=== PATIENT | male | born 1980 | race Caucasian/White ===

== ENCOUNTER 2017-05-08 03:09 | Emergency (ER) | payer OTHER ==
[~2017-05-08] VITALS: Ht 167.6 cm; Wt 109.1 kg
[2017-05-08 03:10] VITALS: BP 149/105
[2017-05-08] MEDS ORDERED: CLIN150C14 PO (03:15)
[2017-05-08] MEDS ORDERED: NAPR550T22 PO (03:15)
== END 2017-05-08 03:47 | disposition home or self-care (01) ==
LOC: M ED 03:09
DX: K08.89 Other specified disorders of teeth and supporting structures (principal); F17.210 Nicotine dependence, cigarettes, uncomplicated; Z79.2 Long term (current) use of antibiotics; Z79.899 Other long term (current) drug therapy

== ENCOUNTER → 2020-03-16 | Outpatient (CLI) | payer OTHER ==
[~2020-03-16] MED LIST: CLIN150C14 PO; D31000TA2 PO; FISH1000 PO; IBUP200C25 PO; NAPR-832 PO; ROSU10TA6 PO
== END ==
LOC: M LABSMTC 10:53
PROVIDERS: ATTEND Anesthesiology
DX: Z01.812 Encounter for preprocedural laboratory examination (principal); Z20.828 Contact with and (suspected) exposure to other viral communicable diseases

== ENCOUNTER 2020-03-21 08:57 | Day surgery (SDC) | payer OTHER ==
[~2020-03-21] VITALS: Ht 167.6 cm; Wt 111.5 kg
[~2020-03-21 08:57] MED LIST changes: +NS 1,000 ML IV ONE
[2020-03-21] MEDS ORDERED: fentaNYL 100 MCG/2 ML INJECTION (J3010) As Ordered ONE (09:54)
[2020-03-21] MEDS ORDERED: LIDOCAINE 2% 100MG/5ML SDV (FOR ANES.) As Ordered ONE (09:54)
[2020-03-21] MEDS ORDERED: propofoL 200 MG/20 ML VIAL As Ordered ONE (09:54)
--- NOTE | 2020-03-21 11:36 | ROOR ---
Patient Name: Lonnie Marin Procedure Date: 03/21/2020 11:10 AM Date of : 1980 Age: 39 Room: [facility] Gender: Male Note Status: Finalized Procedure: Upper Endoscopy + Biopsies Indications: Heartburn, Exclusion of Fuller's esophagus Providers: Imer Driscoll MD Referring MD: [facility], Admin. Requesting Provider: Medicines: Monitored Anesthesia Care Complications: No immediate complications. Procedure: Pre-Anesthesia Assessment: - The heart rate, respiratory rate, oxygen saturations, blood pressure, adequacy of pulmonary ventilation, and response to care were monitored throughout the procedure. The Endoscope was introduced through the mouth, and advanced to the second part of duodenum. The upper GI endoscopy was accomplished without difficulty. The patient tolerated the procedure well. Findings: The Z-line was irregular and was found 35 cm from the incisors. Multiple biopsies were obtained with cold forceps for evaluation to rule out Fuller's Esophagus randomly at the gastroesophageal junction. A small hiatal hernia was present. No other significant abnormalities were identified in a careful examination of the stomach. The exam of the duodenum was otherwise normal. Impression: - Z-line irregular, 35 cm from the incisors. - Small hiatal hernia. - Multiple biopsies were obtained at the gastroesophageal junction. - The examination was otherwise normal. Recommendation: - Patient has a contact number available for emergencies. The signs and symptoms of potential delayed complications were discussed with the patient. Return to normal activities tomorrow. Written discharge instructions were provided to the patient. - High fiber diet. - Discharge patient to home. - Follow an antireflux regimen. - Continue present medications. - Await pathology results. - Telephone GI clinic for pathology results in 1 week. - Return to referring physician. - The findings and recommendations were discussed with the patient. Imer Driscoll MD Imer Driscoll MD 03/21/2020 11:35:23 AM Electronically signed by Imer Driscoll MD Number of Addenda: 0 Note Initiated On: 03/21/2020 11:10 AM Estimated Blood Loss: Estimated blood loss: none.
--- NOTE | 2020-03-21 11:59 | ROOR ---
Patient Name: Lonnie Marin Procedure Date: 03/21/2020 11:12 AM Date of : 1980 Age: 39 Room: [facility] Gender: Male Note Status: Finalized Procedure: Total Colonoscopy to Cecum + Cold Snare Polypectomy + Hemoclips Indications: Change in bowel habits Providers: Imer Driscoll MD Referring MD: [facility], Admin. Requesting Provider: Medicines: Monitored Anesthesia Care Complications: No immediate complications. Procedure: Pre-Anesthesia Assessment: - The heart rate, respiratory rate, oxygen saturations, blood pressure, adequacy of pulmonary ventilation, and response to care were monitored throughout the procedure. The Colonoscope was introduced through the anus and advanced to the cecum, identified by appendiceal orifice and ileocecal valve. The colonoscopy was performed without difficulty. The patient tolerated the procedure well. The quality of the bowel preparation was excellent. Findings: The perianal and digital rectal examinations were normal. Non-bleeding internal hemorrhoids were found during retroflexion. The hemorrhoids were small and Grade I (internal hemorrhoids that do not prolapse). A medium polyp was found in the distal transverse colon. The polyp was sessile. The polyp was removed with a cold snare. Resection and retrieval were complete. To prevent bleeding after the polypectomy, one hemostatic clip was successfully placed (MR conditional). There was no bleeding at the end of the procedure. The exam was otherwise without abnormality on direct and retroflexion views. Impression: - Non-bleeding internal hemorrhoids. - One medium polyp in the distal transverse colon, removed with a cold snare. Resected and retrieved. Clip (MR conditional) was placed. - The examination was otherwise normal on direct and retroflexion views. - The exam was otherwise normal to the cecum. Recommendation: - Patient has a contact number available for emergencies. The signs and symptoms of potential delayed complications were discussed with the patient. Return to normal activities tomorrow. Written discharge instructions were provided to the patient. - High fiber diet. - Discharge patient to home. - Continue present medications. - Repeat colonoscopy in 10 years for screening purposes. - Return to referring physician. - Await pathology results. - Telephone GI clinic for pathology results. - The findings and recommendations were discussed with the patient. Imer Driscoll MD Imer Driscoll MD 03/21/2020 11:58:41 AM Electronically signed by Imer Driscoll MD Number of Addenda: 0 Note Initiated On: 03/21/2020 11:12 AM Estimated Blood Loss: Estimated blood loss: none.
[2020-03-21 12:10] VITALS: BP 138/84
== END 2020-03-21 12:39 | disposition home or self-care (01) ==
LOC: M OPP 08:57
PROVIDERS: ATTEND Internal Medicine Gastroenterology
DX: R19.4 Change in bowel habit (principal); R12 Heartburn; K63.5 Polyp of colon; K64.0 First degree hemorrhoids; K22.8 Other specified diseases of esophagus; K44.9 Diaphragmatic hernia without obstruction or gangrene; D13.0 Benign neoplasm of esophagus; E78.5 Hyperlipidemia, unspecified; F17.290 Nicotine dependence, other tobacco product, uncomplicated; Z79.899 Other long term (current) drug therapy
CPT/HCPCS: 43239; 45385; 88305; J3010

== ENCOUNTER 2021-01-17 04:23 | Emergency (ER) | payer OTHER ==
[~2021-01-17] VITALS: Ht 170.2 cm; Wt 110.9 kg
[~2021-01-17 04:23] MED LIST changes: -CLIN150C14 PO; +CLIN150C15 PO; -NS 1,000 ML IV ONE
[2021-01-17 04:25] VITALS: BP 140/90
== END 2021-01-17 05:31 | disposition left against medical advice (07) ==
LOC: M ED 04:23
DX: Z53.21 Procedure and treatment not carried out due to patient leaving prior to being seen by health care provider (principal)

== ENCOUNTER → 2021-03-25 | Outpatient (CLI) | payer OTHER ==
[~2021-03-25] MED LIST changes: -CLIN150C15 PO; +CLIN150C17 PO
--- NOTE | 2021-03-25 14:33 | REP ---
INDICATION: SOB COMPARISON: None. TECHNIQUE: PA and lateral. FINDINGS: The mediastinum and cardiac silhouette are normal. The lung martinez are clear and without acute consolidation, effusion, or pneumothorax. The skeletal structures are intact and normal. IMPRESSION: No acute cardiopulmonary process. If the patient remains symptomatic consider chest CT for further investigation. <Electronically signed by Kevin Smith > 03/25/21 [id number]
== END ==
LOC: M WUC 14:15
PROVIDERS: ATTEND Physician Assistant
DX: R06.02 Shortness of breath (principal); F17.210 Nicotine dependence, cigarettes, uncomplicated

== ENCOUNTER 2022-06-05 00:47 | Emergency (ER) | payer OTHER ==
[~2022-06-05] VITALS: Ht 167.6 cm; Wt 113.6 kg
[~2022-06-05 00:47] MED LIST changes: -D31000TA2 PO; +VITA100093 PO
[2022-06-05 01:35] LABS: BASO # 0.1 10^3/uL (0.0-0.2); BASO % 0.6 % (0.0-1.0); EOS # 0.2 10^3/uL (0.0-0.5); EOS % 2.1 % (0.0-3.0); HEMATOCRIT 47.5 % (42.0-52.0); HEMOGLOBIN 16.4 g/dl (13.5-17.5); LYMPH # 3.2 10^3/uL (1.5-5.0); LYMPH % 30.6 % (24.0-44.0); MEAN CORPUSCULAR HGB CONC 34.5 g/dl (32.0-36.5); MEAN CORPUSCULAR VOLUME 89.8 fl (80.0-96.0); MONO # 0.9 10^3/uL (0.0-0.8); MONO % 8.2 % (2.0-8.0); NEUTROPHILS % 58.1 % (36.0-66.0); PLATELET COUNT, AUTOMATED 214 10^3/uL (150-450); RED BLOOD COUNT 5.29 10^6/uL (4.30-6.10); WHITE BLOOD COUNT 10.3 10^3/uL (4.0-10.0)
[2022-06-05 01:45] LABS: INR 0.87
[2022-06-05] MEDS: ASPIRIN 81MG CHEW TABLET PO ONE ×2 (01:45→01:53)
[2022-06-05 01:55] LABS: CK-MB VALUE MASS 1.3 NG/ML (<3.6)
[2022-06-05 01:56] LABS: LIPASE 83 U/L (12-53)
[2022-06-05 01:57] LABS: BILIRUBIN,DIRECT < 0.1 MG/DL (<0.4)
[2022-06-05 01:59] LABS: THYROID STIMULATING HORMONE 2.785 uIU/ML (0.55-4.78)
[2022-06-05] MEDS ORDERED: KETOROLAC 30 MG/ML 1ML VIAL IV ONE (02:00)
[2022-06-05 02:01] LABS: ALBUMIN 3.5 G/DL (3.2-5.2); ALKALINE PHOSPHATASE 68 U/L (46-116); ALT/SGPT 55 U/L (7.0-40); AST/SGOT 28 U/L (<34); BILIRUBIN,TOTAL 0.2 MG/DL (0.3-1.2); BLOOD UREA NITROGEN 14 MG/DL (9-23); CALCIUM LEVEL 8.8 MG/DL (8.5-10.1); CARBON DIOXIDE LEVEL 26 MMOL/L (20-31); CHLORIDE LEVEL 108 MMOL/L (98-107); CPK CREATINE PHOSPHOKINASE 274 U/L (46-171); CREATININE FOR GFR 0.95 MG/DL (0.70-1.30); GLOMERULAR FILTRATION RATE > 60.0 (>60); GLUCOSE, FASTING 119 MG/DL (60-100); MB/CK RELATIVE INDEX 0.47 (< OR =4); POTASSIUM SERUM 4.2 MMOL/L (3.5-5.1); SODIUM LEVEL 140 MMOL/L (136-145); TOTAL PROTEIN 6.5 G/DL (5.7-8.2)
[2022-06-05] MEDS ORDERED: hydrALAZINE 20MG/ML 1ML VIAL IV ONE (02:35)
[2022-06-05] MEDS ORDERED: ISOVUE-370 76% 100ML VIAL As Ordered ONE (02:43)
[2022-06-05 03:02] LABS: CK-MB VALUE MASS < 1.0 NG/ML (<3.6)
[2022-06-05 03:08] LABS: CPK CREATINE PHOSPHOKINASE 264 U/L (46-171); MB/CK RELATIVE INDEX 0.37 (< OR =4)
[2022-06-05] MEDS ORDERED: NS 1,000 ML IV ONE (03:10)
[2022-06-05 03:26] VITALS: BP 180/94
[2022-06-05] MEDS ORDERED: MORPHINE 2 MG/ML 1ML VIAL IV ONE (04:35)
[2022-06-05] MEDS ORDERED: KETO10TAB PO (05:45)
[2022-06-05 05:49] VITALS: BP 132/80
[2022-06-05] MEDS ORDERED: KETOROLAC TROMETHAMINE 10 MG TAB PO ONE (05:50)
== END 2022-06-05 06:03 | disposition home or self-care (01) ==
LOC: M ED 00:47
DX: R07.89 Other chest pain (principal); E78.5 Hyperlipidemia, unspecified; F17.200 Nicotine dependence, unspecified, uncomplicated; F12.10 Cannabis abuse, uncomplicated; Z79.899 Other long term (current) drug therapy
CPT/HCPCS: 71045; 71275; 80048; 80076; 81002; 82550; 82553; 83690; 83880; 84439; 84443; 84484; 85025; 85610; 87486; 87581; 87633; 87798; 93005; 93041; 94760; 99285; J0360; J1885; Q9967

== ENCOUNTER → 2022-08-15 | Outpatient (CLI) | payer OTHER ==
[~2022-08-15] MED LIST changes: +KETO10TAB PO
== END ==
LOC: M PLAIMG 08:18
PROVIDERS: ATTEND Internal Medicine
DX: M54.50 Low back pain, unspecified (principal)

== ENCOUNTER 2023-09-30 11:54 | Day surgery (SDC) | payer OTHER ==
[~2023-09-30] VITALS: Ht 167.6 cm; Wt 118.3 kg
[2023-09-30 12:33] LABS: BASO # 0.1 10^3/uL (0.0-0.2); BASO % 0.4 % (0.0-1.0); EOS # 0.1 10^3/uL (0.0-0.5); EOS % 0.7 % (0.0-3.0); HEMATOCRIT 47.7 % (42.0-52.0); HEMOGLOBIN 16.7 g/dl (13.5-17.5); LYMPH # 2.3 10^3/uL (1.5-5.0); MEAN CORPUSCULAR HEMOGLOBIN 31.7 pg (27.0-33.0); MEAN CORPUSCULAR VOLUME 90.7 fl (80.0-96.0); MONO # 0.9 10^3/uL (0.0-0.8); MONO % 7.3 % (2.0-8.0); NEUTROPHILS # 8.8 10^3/uL (1.5-8.5); NEUTROPHILS % 72.3 % (36.0-66.0); PLATELET COUNT, AUTOMATED 218 10^3/uL (150-450); RED BLOOD COUNT 5.26 10^6/uL (4.30-6.10); WHITE BLOOD COUNT 12.1 10^3/uL (4.0-10.0)
[2023-09-30 13:05] LABS: LIPASE 52 U/L (12-53)
[2023-09-30 13:08] LABS: ALBUMIN 3.7 G/DL (3.2-5.2); ALKALINE PHOSPHATASE 60 U/L (46-116); ALT/SGPT 48 U/L (7.0-40); AST/SGOT 22 U/L (<34); BILIRUBIN,DIRECT 0.2 MG/DL (<0.4); BILIRUBIN,TOTAL 0.5 MG/DL (0.3-1.2); BLOOD UREA NITROGEN 16 MG/DL (9-23); CALCIUM LEVEL 8.6 MG/DL (8.5-10.1); CARBON DIOXIDE LEVEL 30 MMOL/L (20-31); CHLORIDE LEVEL 103 MMOL/L (98-107); CREATININE FOR GFR 1.05 MG/DL (0.70-1.30); GLOMERULAR FILTRATION RATE > 60.0 (>60); GLUCOSE, FASTING 123 MG/DL (60-100); POTASSIUM SERUM 4.1 MMOL/L (3.5-5.1); SODIUM LEVEL 138 MMOL/L (136-145); TOTAL PROTEIN 6.6 G/DL (5.7-8.2)
[2023-09-30] MEDS: NS 1,000 ML IV ONE (13:45)
[2023-09-30] MEDS ORDERED: ISOVUE-370 76% 100ML VIAL As Ordered ONE (13:48)
[2023-09-30] MEDS: PIPERACILLIN/TAZOBACTAM SOD 4.5 GM in D5W MINI-BAG PLUS 50 ML IV ONE (14:23)
[2023-09-30] MEDS: ACETAMINOPHEN *IV* 1,000 MG in IV 1 EA IV ONE (14:24)
[2023-09-30] MEDS ORDERED: MILKSUS3 PO (14:42)
[2023-09-30] MEDS ORDERED: HOME MED LIST COMPLETE! XX SCH (14:45)
[2023-09-30] MEDS ORDERED: MORPHINE 2 MG/ML 1ML VIAL IV PRN (16:30)
[2023-09-30] MEDS ORDERED: ONDANSETRON 4MG 2ML VIAL IV PRN (16:30)
[2023-09-30] MEDS: LR 1,000 ML IV SCH (17:15)
[2023-09-30] MEDS: PIPERACILLIN/TAZOBACTAM SOD 3.375 GM in D5W MINI-BAG PLUS 50 ML IV SCH (20:12)
[2023-09-30] MEDS ORDERED: ROCURONIUM BROMIDE 50MG/5ML VIAL As Ordered ONE (22:05)
[2023-09-30] MEDS ORDERED: LIDOCAINE 2% 100MG/5ML SDV (FOR ANES.) As Ordered ONE (22:05)
[2023-09-30] MEDS ORDERED: propofoL 200 MG/20 ML VIAL As Ordered ONE (22:05)
[2023-09-30] MEDS ORDERED: MIDAZOLAM INJ 2MG/2ML VIAL As Ordered ONE (22:06)
[2023-09-30] MEDS ORDERED: fentaNYL 250 MCG/5 ML INJECTION As Ordered ONE (22:06)
[2023-09-30] MEDS ORDERED: LIDOCAINE 1% SDV 30ML VIAL As Ordered ONE (22:15)
[2023-09-30] MEDS ORDERED: ONDANSETRON 4MG 2ML VIAL As Ordered ONE (22:51)
[2023-09-30] MEDS ORDERED: ACETAMINOPHEN 1000MG 100ML IV BAG As Ordered ONE (22:52)
[2023-09-30] MEDS ORDERED: ALBUTEROL 6.7GM INHALER **FOR ANES. CART/OMNICELL ONLY As Ordered ONE (22:53)
[2023-09-30] MEDS ORDERED: SUGAMMADEX SODIUM 500 MG/5 ML VIAL (BRIDION) As Ordered ONE (23:11)
[2023-09-30] MEDS ORDERED: PERCOCET 5MG/325MG TAB PO PRN ×2 (23:55)
[2023-10-01] MEDS ORDERED: LR 1,000 ML IV SCH (00:15)
[2023-10-01] MEDS ORDERED: HYDROMORPHONE HCL 0.5 MG/ 0.5 ML SYRINGE IV PRN (00:15)
[2023-10-01] MEDS ORDERED: fentaNYL 100 MCG/2 ML INJECTION IV PRN (00:15)
[2023-10-01] MEDS: oxyCODONE 5MG TAB PO PRN (00:38)
[2023-10-01] MEDS: ONDANSETRON 4MG 2ML VIAL IV PRN (00:39)
[2023-10-01 01:22] VITALS: BP 153/90; TEMP 97.7; O2SAT 94
[2023-10-01 02:07] VITALS: BP 157/97; TEMP 97.7; O2SAT 95
[2023-10-01 03:41] VITALS: BP 139/87; TEMP 96.6; O2SAT 94
[2023-10-01] MEDS: KETOROLAC 30 MG/ML 1ML VIAL IV PRN (05:42)
[2023-10-01 06:07] LABS: BASO % 0.2 % (0.0-1.0); HEMATOCRIT 46.5 % (42.0-52.0); HEMOGLOBIN 15.8 g/dl (13.5-17.5); LYMPH # 1.1 10^3/uL (1.5-5.0); LYMPH % 7.6 % (24.0-44.0); MEAN CORPUSCULAR VOLUME 91.2 fl (80.0-96.0); MONO # 0.4 10^3/uL (0.0-0.8); MONO % 2.7 % (2.0-8.0); NEUTROPHILS # 12.5 10^3/uL (1.5-8.5); NEUTROPHILS % 89.1 % (36.0-66.0); PLATELET COUNT, AUTOMATED 202 10^3/uL (150-450)
[2023-10-01 06:13] VITALS: BP 135/82; TEMP 97.3; O2SAT 95
[2023-10-01 06:35] LABS: BLOOD UREA NITROGEN 15 MG/DL (9-23); CALCIUM LEVEL 8.2 MG/DL (8.5-10.1); CARBON DIOXIDE LEVEL 26 MMOL/L (20-31); CHLORIDE LEVEL 105 MMOL/L (98-107); CREATININE FOR GFR 1.13 MG/DL (0.70-1.30); GLOMERULAR FILTRATION RATE > 60.0 (>60); GLUCOSE, FASTING 135 MG/DL (60-100); POTASSIUM SERUM 4.7 MMOL/L (3.5-5.1); SODIUM LEVEL 137 MMOL/L (136-145)
[2023-10-01 14:00] VITALS: BP_SYST 111; BP_SYST 146; BP_DIAS 68; BP_DIAS 90; TEMP 97.5; TEMP 97.9; O2SAT 92; O2SAT 95
[2023-10-01] MEDS ORDERED: PERCOCET PO (16:21)
[2023-10-01] MEDS ORDERED: LEVO1TAB40 PO (16:23)
[2023-10-01] MEDS ORDERED: METR-265 PO (16:24)
== END 2023-10-01 16:45 | disposition home or self-care (01) ==
LOC: M ED 11:54 → M SDC 11:55 → UNDOADMIN 16:28 → M ED INP 16:28 → M MS5PR 10-01 00:55 → M ED INP 10-01 00:55 → M MS5PR 10-01 00:55 → M SDC 10-01 16:45 → UNDODISIN 10-01 16:45
PROVIDERS: ATTEND Surgery
DX: K35.30 Acute appendicitis with localized peritonitis, without perforation or gangrene (principal); J45.909 Unspecified asthma, uncomplicated; F17.210 Nicotine dependence, cigarettes, uncomplicated; E78.00 Pure hypercholesterolemia, unspecified; E66.01 Morbid (severe) obesity due to excess calories; Z68.42 Body mass index [BMI] 45.0-49.9, adult
CPT/HCPCS: 36415; 44970; 80048; 80076; 83690; 85025; 86140; 88304; 99284; J0131; J0665; J1100; J1885; J2250; J2405; J2543; J3010; Q9967

== ENCOUNTER 2025-02-24 09:00 | Day surgery (SDC) | payer OTHER ==
[~2025-02-24] VITALS: Ht 167.6 cm; Wt 118.1 kg
[~2025-02-24 09:00] MED LIST changes: +ASPI81CH33 PO; +FENO145T7 PO; +FENO1CAP16 PO; +LEVO1TAB40 PO; +METR-265 PO; +MILKSUS3 PO; +PERCOCET PO; -ROSU10TA6 PO; +ROSU10TA61 PO; +VITA200012 PO
[2025-02-24 10:30] VITALS: BP 145/94; TEMP 97.8; O2SAT 97
== END 2025-02-24 10:50 | disposition home or self-care (01) ==
LOC: M OPP 09:00
PROVIDERS: ATTEND Surgery
DX: K63.5 Polyp of colon (principal); K64.0 First degree hemorrhoids; Z86.0100 Personal history of colon polyps, unspecified; K22.89 Other specified disease of esophagus; K22.70 Barrett's esophagus without dysplasia; Z79.82 Long term (current) use of aspirin; Z79.899 Other long term (current) drug therapy; F17.210 Nicotine dependence, cigarettes, uncomplicated; J44.9 Chronic obstructive pulmonary disease, unspecified
CPT/HCPCS: 43239; 45385; 88305; J3010